=== PATIENT | male | born 1990 | race African-American/Black ===

== ENCOUNTER 2016-07-28 07:03 | Emergency (ER) | payer SELFPAY ==
[2016-07-28 08:23] LABS: ABSOLUTE LYMPHOCYTES (AUTO) 1.8 10^3/uL (0.5-4.7); ABSOLUTE MONOCYTES (AUTO) 0.4 10^3/uL (0.1-1.4); ABSOLUTE NEUT (AUTO) 1.5 10^3/uL (1.7-8.2); BASOPHILS % (AUTO) 0.7 % (0-2); EOSINOPHILS % (AUTO) 1.2 % (0-6); HEMATOCRIT 44.9 % (37.9-51.0); HEMOGLOBIN 15.2 g/dL (13.5-17.0); HGB HCT DIFFERENCE 0.7; LYMPHOCYTES % (AUTO) 48.1 % (13-45); MEAN CORPUSCULAR HEMOGLOBIN 32.3 pg (27.0-33.4); MEAN CORPUSCULAR HGB CONC 33.9 g/dL (32.0-36.0); MEAN CORPUSCULAR VOLUME 95 fl (80-97); MONOCYTES % (AUTO) 10.3 % (3-13); RED BLOOD COUNT 4.72 10^6/uL (4.35-5.55); RED CELL DISTRIBUTION WIDTH 12.8 % (11.5-14.0); SEGMENTED NEUTROPHILS % (AUTO) 39.7 % (42-78); WHITE BLOOD COUNT 3.8 10^3/uL (4.0-10.5)
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
[2016-07-28 08:46] LABS: ALANINE AMINOTRANSFERASE 15 U/L (21-72); ALBUMIN 4.5 g/dL (3.5-5.0); ALKALINE PHOSPHATASE 69 U/L (38-126); ANION GAP 11 (5-19); ASPARTATE AMINO TRANSFERASE 23 U/L (17-59); BILIRUBIN,DIRECT 0.2 mg/dL (0.0-0.4); BILIRUBIN,TOTAL 0.8 mg/dL (0.2-1.3); BLOOD UREA NITROGEN 17 mg/dL (7-20); CARBON DIOXIDE 30 mmol/L (22-30); CHLORIDE 101 mmol/L (98-107); CREATINE KINASE 224 U/L (55-170); CREATININE RESULT 1.13 mg/dL (0.52-1.25); GLUCOSE 96 mg/dL (75-110); POTASSIUM 4.3 mmol/L (3.6-5.0); SODIUM 141.5 mmol/L (137-145); TOTAL PROTEIN 7.4 g/dL (6.3-8.2)
[2016-07-28 09:37] LABS: URINE BARBITURATES SCREEN NEGATIVE; URINE METHADONE SCREEN NEGATIVE; URINE OPIATES LOW NEGATIVE; URINE PHENCYCLIDINE SCREEN NEGATIVE
[2016-07-28 10:57] VITALS: BP 119/66
--- NOTE | 2016-07-28 12:53 | EKG REPORT ---
SEVERITY:- NORMAL ECG - SINUS RHYTHM RSR' IN V1 : Confirmed by: Gayle Fitzgerald MD 28-Jul-2016 12:52:55
== END 2016-07-28 10:57 | disposition home or self-care (01) ==
LOC: ER 07:03
DX: R55 Syncope and collapse (principal); R07.9 Chest pain, unspecified; R11.2 Nausea with vomiting, unspecified; F17.200 Nicotine dependence, unspecified, uncomplicated; D72.819 Decreased white blood cell count, unspecified
CPT/HCPCS: 36415; 71020; 80053; 80307; 82550; 84484; 85025; 85379; 93005; 93010; 99284

== ENCOUNTER 2017-04-25 16:43 | Emergency (ER) | payer MEDICAID ==
[2017-04-25] MEDS ORDERED: FENTANYL CITRATE INJ/PF 100 MCG/2 ML AMPUL IV ONE (16:45)
[2017-04-25] MEDS ORDERED: NORMAL SALINE 1000 ML 1,000 ML IV ONE (16:47)
[2017-04-25] MEDS ORDERED: DIAZEPAM INJ 10 MG/2 ML DISP.SYRIN IV ONE (16:48)
[2017-04-25] MEDS ORDERED: DIPH/PERTUSS(ACELL)/TETANUS VAC/PF 0.5 ML SYR (>=10YO) IM ONE (16:48)
[2017-04-25] MEDS ORDERED: DIAZEPAM INJ 10 MG/2 ML DISP.SYRIN ONE (16:50)
[2017-04-25] MEDS ORDERED: CEFAZOLIN 1 GM/D5W RTU 1 GM/50 ML RTUPB IV ONE (16:55)
[2017-04-25] MEDS ORDERED: HYDROMORPHONE HCL INJ/PF 2 MG/ML AMPULE IV ONE ×2 (16:56→17:52)
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
[2017-04-25 17:02] LABS: ABSOLUTE LYMPHOCYTES (AUTO) 3.5 10^3/uL (0.5-4.7); ABSOLUTE MONOCYTES (AUTO) 0.7 10^3/uL (0.1-1.4); ABSOLUTE NEUT (AUTO) 5.2 10^3/uL (1.7-8.2); BASOPHILS % (AUTO) 0.4 % (0-2); EOSINOPHILS % (AUTO) 0.2 % (0-6); HEMATOCRIT 46.1 % (37.9-51.0); HEMOGLOBIN 15.6 g/dL (13.5-17.0); LYMPHOCYTES % (AUTO) 37.1 % (13-45); MEAN CORPUSCULAR HEMOGLOBIN 32.6 pg (27.0-33.4); MEAN CORPUSCULAR HGB CONC 33.8 g/dL (32.0-36.0); MEAN CORPUSCULAR VOLUME 96 fl (80-97); MONOCYTES % (AUTO) 7.6 % (3-13); PLATELET COUNT 182 10^3/uL (150-450); RED BLOOD COUNT 4.78 10^6/uL (4.35-5.55); RED CELL DISTRIBUTION WIDTH 12.7 % (11.5-14.0); SEGMENTED NEUTROPHILS % (AUTO) 54.7 % (42-78); TOTAL CELLS COUNTED % (AUTO) 100 %; WHITE BLOOD COUNT 9.6 10^3/uL (4.0-10.5)
[2017-04-25 17:09] LABS: INTERNATIONAL RATION (INR) 0.93; PROTHROMBIN TIME 13.2 SEC (11.4-15.4)
[2017-04-25 17:10] LABS: PARTIAL THROMBOPLASTIN TIME 24.8 SEC (23.5-35.8)
[2017-04-25 17:15] LABS: ALANINE AMINOTRANSFERASE 23 U/L (21-72); ALBUMIN 4.9 g/dL (3.5-5.0); ALKALINE PHOSPHATASE 69 U/L (38-126); ANION GAP 12 (5-19); ASPARTATE AMINO TRANSFERASE 27 U/L (17-59); BILIRUBIN,DIRECT 0.2 mg/dL (0.0-0.4); BILIRUBIN,TOTAL 0.5 mg/dL (0.2-1.3); BLOOD UREA NITROGEN 13 mg/dL (7-20); CALCIUM 10.3 mg/dL (8.4-10.2); CARBON DIOXIDE 32 mmol/L (22-30); CHLORIDE 101 mmol/L (98-107); GLUCOSE 112 mg/dL (75-110); POTASSIUM 3.7 mmol/L (3.6-5.0); SODIUM 144.5 mmol/L (137-145); TOTAL PROTEIN 8.1 g/dL (6.3-8.2)
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
[2017-04-25 18:40] VITALS: BP 130/81
[2017-04-25 19:26] LABS: APPEARANCE,URINE CLEAR; BILIRUBIN,URINE NEGATIVE (NEGATIVE); COLOR,URINE YELLOW; GLUCOSE, URINE NEGATIVE (NEGATIVE); KETONES,URINE NEGATIVE (NEGATIVE); LEUKOCYTE ESTERASE,URINE NEGATIVE (NEGATIVE); NITRITE,URINE NEGATIVE (NEGATIVE); PROTEIN,URINE 30 mg/dL (NEGATIVE); URINE SPECIFIC GRAVITY 1.021; UROBILINOGEN,URINE NEGATIVE mg/dL (<2.0)
[2017-04-25 19:38] LABS: URINE AMPHETAMINES SCREEN NEGATIVE; URINE BARBITURATES SCREEN NEGATIVE; URINE BENZODIAZEPINES SCREEN NEGATIVE; URINE COCAINE SCREEN NEGATIVE; URINE MARIJUANA (THC) SCREEN UNCONFIRMED POSITIVE; URINE METHADONE SCREEN NEGATIVE; URINE PHENCYCLIDINE SCREEN NEGATIVE
[2017-04-25] MEDS ORDERED: NITROGLYCERIN/D5W 50 MG/250 ML RTUINJ IV PRN (21:58)
== END 2017-04-25 18:28 | disposition short-term general hospital (02) ==
LOC: ER 16:43
DX: S62.325B Displaced fracture of shaft of fourth metacarpal bone, left hand, initial encounter for open fracture (principal); W34.00XA Accidental discharge from unspecified firearms or gun, initial encounter; Y93.89 Activity, other specified; Y92.009 Unspecified place in unspecified non-institutional (private) residence as the place of occurrence of the external cause; Z98.890 Other specified postprocedural states; Z23 Encounter for immunization
CPT/HCPCS: 96376; 99291; 90471; 96375; 96365; 36415; 85025; 85610; 85730; 80053; 81001; 80307; 73130; 90715; 29125; J0690; J3360; J3010; J1170; J7030

== ENCOUNTER 2018-11-14 14:11 | Emergency (ER) | payer SELFPAY ==
--- NOTE | 2018-11-14 15:01 | ER Document Report ---
ED Medical Screen (RME) - General Chief Complaint: Heat Exposure Stated Complaint: POSSIBLE SPIDER BITE Time Seen by Provider: 11/14/18 14:46 Notes: Generally healthy 28-year-old male presents to the emergency department with chief complaint of hematuria and also for concern for a spider bite on his left anterior lateral thigh. Patient states that he thought he was bit by a spider while he was sleeping and there were 2 small puncture wounds present yesterday. Patient states that the wound itched and he put some aloe vera on it. Patient has not been picking at it and when he woke up this morning there was some swelling around the area and some skin breakdown present. Also, patient has had hematuria 3 times over the past 2 months, yesterday after urinating there was a "a lot of blood" in the toilet which concerned him prompting him to seek care today. Patient complained of some mild flank pain, denies any urinary frequency/urgency/dysuria. Patient is in a monogamous relationship. No other complaints I have greeted and performed a rapid initial assessment of this patient. A comprehensive ED assessment and evaluation of the patient, analysis of test results and completion of medical decision making process will be conducted by an additional ED providers. TRAVEL OUTSIDE OF THE [place] IN LAST 30 DAYS: No - Related Data Allergies/Adverse Reactions: No Known Allergies Allergy (Verified 11/14/18 14:11) Past Medical History - Social History Chew tobacco use (# tins/day): No Frequency of alcohol use: None Drug Abuse: Marijuana Renal/ Medical History: Denies: Hx Peritoneal Dialysis Musculoskeltal Medical History: Reports Hx Musculoskeletal Deformity, Reports Hx Musculoskeletal Trauma Traumatic Medical History: Reports: Hx Fractures Past Surgical History: Reports: Hx Oral Surgery - wisdom tooth, Hx Orthopedic Surgery - hand and foot - Immunizations Immunizations up to date: No Hx Diphtheria, Pertussis, Tetanus Vaccination: No Physical Exam - Vital signs Vitals: Temp Pulse Resp BP Pulse Ox 98.6 F 80 16 121/63 96 11/14/18 14:15 11/14/18 14:15 11/14/18 14:15 11/14/18 14:15 11/14/18 14:15 - Notes Notes: PHYSICAL EXAMINATION: Reviewed vital signs and charting by RN GENERAL: Alert, interacts well. No acute distress. HEAD: Normocephalic, atraumatic. EYES: Pupils equal and round. Extraocular movements intact. ENT: Oral mucosa moist, tongue midline. NECK: Full range of motion. Trachea midline. LUNGS: Clear to auscultation bilaterally, no wheezes, rales, or rhonchi. No respiratory distress. HEART: Regular rate and rhythm. No murmur ABDOMEN: Deferred in triage. EXTREMITIES: Moves all 4 extremities spontaneously. No edema, No cyanosis. PSYCH: Normal affect, normal mood. SKIN: Warm, dry, normal turgor. No rashes or lesions noted. Course - Vital Signs Vital signs: Temp Pulse Resp BP Pulse Ox 98.6 F 80 16 121/63 96 11/14/18 14:15 11/14/18 14:15 11/14/18 14:15 11/14/18 14:15 11/14/18 14:15
[2018-11-14 15:27] LABS: ABSOLUTE LYMPHOCYTES (AUTO) 2.2 10^3/uL (0.5-4.7); ABSOLUTE MONOCYTES (AUTO) 0.5 10^3/uL (0.1-1.4); ABSOLUTE NEUT (AUTO) 3.1 10^3/uL (1.7-8.2); BASOPHILS % (AUTO) 0.7 % (0-2); EOSINOPHILS % (AUTO) 0.7 % (0-6); HEMATOCRIT 45.7 % (37.9-51.0); HEMOGLOBIN 15.4 g/dL (13.5-17.0); LYMPHOCYTES % (AUTO) 37.6 % (13-45); MEAN CORPUSCULAR HEMOGLOBIN 32.3 pg (27.0-33.4); MEAN CORPUSCULAR HGB CONC 33.7 g/dL (32.0-36.0); MEAN CORPUSCULAR VOLUME 96 fl (80-97); MONOCYTES % (AUTO) 8.8 % (3-13); PLATELET COUNT 178 10^3/uL (150-450); RED BLOOD COUNT 4.77 10^6/uL (4.35-5.55); RED CELL DISTRIBUTION WIDTH 13.3 % (11.5-14.0); SEGMENTED NEUTROPHILS % (AUTO) 52.2 % (42-78); TOTAL CELLS COUNTED % (AUTO) 100 %; WHITE BLOOD COUNT 5.9 10^3/uL (4.0-10.5)
[2018-11-14] MEDS ORDERED: NORMAL SALINE 1000 ML 1,000 ML IV ONE ×2 (15:34→16:59)
--- NOTE | 2018-11-14 15:40 | ER Document Report ---
ED General - General Chief Complaint: Heat Exposure Stated Complaint: POSSIBLE SPIDER BITE Time Seen by Provider: 11/14/18 14:46 Primary Care Provider: [facility] [Provider Group] - Follow up as needed [facility] [Provider Group] - Follow up as needed Notes: Patient is a 28-year-old male who presents to the emergency department with multiple complaints. Patient states this morning he woke up and noted drops of blood on the outside of his penis. Patient states that this has happened 2 oth er times over the past few months where he will wake up and noticed blood on his boxers. Patient states sometimes he does feel like he cannot empty his bladder but does not have any urinary symptoms. Patient states there is no penile pain or testicular pain or swelling. Patient states he is sexually active with his as they are in a monogamous relationship. Patient states they do not use p rotection. Patient states he has never seen a doctor for this. Patient denies fever. Patient states he has had chills. Patient denies joint pain. Patient also complains of possible dehydration. He states that the air conditioning in his house is broken and they have been outside all day. Patient states he has been hydrating appropriately but he feels like his urine is darker than normal and that he feels drained. Patient denies passing out or feeling of lightheadedness. Patient states he just feels like a heaviness throughout his whole body. Patient also complains of possible spider bite to the left anterior thigh. Patient states he noticed this 24 hours ago when he woke up and noticed to possible bite lawrence. Patient states that appeared to be 2 pimple-like areas that have now busted and turned into a dried wound. Patient denies pain to the site. TRAVEL OUTSIDE OF THE [place] IN LAST 30 DAYS: No - Related Data Allergies/Adverse Reactions: No Known Allergies Allergy (Verified 11/14/18 14:11) Past Medical History - General Information source: Patient - Social History Smoking Status: Current Every Day Smoker Cigarette use (# per day): Yes - 5-6 cigs per day Chew tobacco use (# tins/day): No Smoking Education Provided: Yes Frequency of alcohol use: None Drug Abuse: Marijuana Lives with: Family Family History: CAD, Hyperlipidemia, Hypertension Patient has suicidal ideation: No Patient has homicidal ideation: No - Past Medical History Cardiac Medical History: Reports: None Pulmonary Medical History: Reports: Hx Bronchitis EENT Medical History: Reports: None Neurological Medical History: Reports: None Endocrine Medical History: Reports: None Renal/ Medical History: Reports: None. Denies: Hx Peritoneal Dialysis Malignancy Medical History: Reports None GI Medical History: Reports: None Musculoskeletal Medical History: Reports Hx Musculoskeletal Deformity, Reports Hx Musculoskeletal Trauma Skin Medical History: Reports None Psychiatric Medical History: Reports: None Traumatic Medical History: Reports: Hx Fractures Infectious Medical History: Reports: None Past Surgical History: Reports: Hx Oral Surgery - wisdom tooth, Hx Orthopedic Surgery - hand and foot - Immunizations Immunizations up to date: No Hx Diphtheria, Pertussis, Tetanus Vaccination: No Review of Systems - Review of Systems Constitutional: See HPI EENT: No symptoms reported Cardiovascular: No symptoms reported Respiratory: No symptoms reported Gastrointestinal: No symptoms reported Genitourinary: See HPI Male Genitourinary: See HPI Musculoskeletal: Back pain Skin: See HPI Hematologic/Lymphatic: No symptoms reported Neurological/Psychological: No symptoms reported Physical Exam - Vital signs Vitals: Temp Pulse Resp BP Pulse Ox 98.6 F 80 16 121/63 96 11/14/18 14:15 11/14/18 14:15 11/14/18 14:15 11/14/18 14:15 11/14/18 14:15 Interpretation: Normal - Notes Notes: GENERAL: Well-appearing, well-nourished and in no acute distress. HEAD: Atraumatic, normocephalic. EYES: Pupils equal round and reactive to light, extraocular movements intact, sclera anicteric, conjunctiva are normal. ENT: Nares patent, oropharynx clear without exudates. Moist mucous membranes. NECK: Normal range of motion, supple without lymphadenopathy or JVD. LUNGS: Breath sounds clear to auscultation bilaterally and equal. No wheezes rales or rhonchi. HEART: Regular rate and rhythm without murmurs, rubs or gallops. ABDOMEN: Soft, nontender, normoactive bowel sounds. No guarding, no rebound. No masses appreciated. BACK: No cervical, thoracic, lumbar midline tenderness. No saddle anesthesia, normal distal neurovascular exam. GENITOURINARY: Deferred. EXTREMITIES: Normal range of motion, no pitting or edema. No clubbing or cyanosis. NEUROLOGICAL: Cranial nerves II through XII grossly intact. Normal speech, normal gait. PSYCH: Normal mood, normal affect. SKIN: Warm, Dry, normal turgor, 4ofh2up area of erythema to left anterior thigh, no drainage, area is slightly firm without fluctuance, there does not appear to be a surrounding cellulitis or an area of necrotic tissue at this time. Course - Re-evaluation Re-evalutation: 11/14/18 15:40 Upon initial assessment patient is resting comfortably on stretcher and is nontoxic-appearing. Patient's vital signs are stable. I will hydrate the patient appropriately and wait for basic labs and a urinalysis. 11/14/18 17:15 Patient reports feeling much better after receiving first liter of fluids. Due to the patient's elevated creatinine and elevated CK I will give another liter of IV fluids. I did speak with the patient and the significant other regarding close monitoring of the possible left insect bite to the leg. I did educate him to use warm compresses to the site and to seek medical treatment if the redness grows and extends up or down the leg, begins to drain, feels hot to touch or if he has any concerning signs or symptoms. 11/14/18 17:24 With Farheen VILLAVICENCIO at bedside I did performed a genitalia examination as the patient reported waking up with drops of blood coming out of the penis. No lesions noted on the outside or tip of the penis, no drainage or discharge, no tenderness to the epididymitis, no swelling or pain to the testicles. - Vital Signs Vital signs: Temp Pulse Resp BP Pulse Ox 98.6 F 80 16 121/63 96 11/14/18 14:15 11/14/18 14:15 11/14/18 14:15 11/14/18 14:15 11/14/18 14:15 - Laboratory Result Diagrams: 11/14/18 15:05 11/14/18 15:05 Laboratory results interpreted by me: 11/14/18 11/14/18 11/14/18 15:00 15:05 15:05 Creatinine 1.40 H Creatine Kinase 226 H Urine Ketones TRACE H Urine Urobilinogen 4.0 H Urine Ascorbic Acid 20 H Laboratory 11/14/18 11/14/18 11/14/18 15:00 15:05 15:05 WBC 5.9 RBC 4.77 Hgb 15.4 Hct 45.7 MCV 96 MCH 32.3 MCHC 33.7 RDW 13.3 Plt Count 178 Seg Neutrophils % 52.2 Lymphocytes % 37.6 Monocytes % 8.8 Eosinophils % 0.7 Basophils % 0.7 Absolute Neutrophils 3.1 Absolute Lymphocytes 2.2 Absolute Monocytes 0.5 Absolute Eosinophils 0.0 Absolute Basophils 0.0 Sodium 138.9 Potassium 4.3 Chloride 101 Carbon Dioxide 30 Anion Gap 8 BUN 14 Creatinine 1.40 H Est GFR ( Amer) > 60 Est GFR (Non-Af Amer) > 60 Glucose 81 Calcium 9.9 Creatine Kinase Urine Color YELLOW Urine Appearance CLEAR Urine pH 7.0 Ur Specific [place] 1.019 Urine Protein NEGATIVE Urine Glucose (UA) NEGATIVE Urine Ketones TRACE H Urine Blood NEGATIVE Urine Nitrite NEGATIVE Urine Bilirubin NEGATIVE Urine Urobilinogen 4.0 H Ur Leukocyte Esterase NEGATIVE Urine WBC (Auto) 1 Urine RBC (Auto) 2 Urine Mucus (Auto) RARE Urine Ascorbic Acid 20 H 11/14/18 15:05 WBC RBC Hgb Hct MCV MCH MCHC RDW Plt Count Seg Neutrophils % Lymphocytes % Monocytes % Eosinophils % Basophils % Absolute Neutrophils Absolute Lymphocytes Absolute Monocytes Absolute Eosinophils Absolute Basophils Sodium Potassium Chloride Carbon Dioxide Anion Gap BUN Creatinine Est GFR ( Amer) Est GFR (Non-Af Amer) Glucose Calcium Creatine Kinase 226 H Urine Color Urine Appearance Urine pH Ur Specific [place] Urine Protein Urine Glucose (UA) Urine Ketones Urine Blood Urine Nitrite Urine Bilirubin Urine Urobilinogen Ur Leukocyte Esterase Urine WBC (Auto) Urine RBC (Auto) Urine Mucus (Auto) Urine Ascorbic Acid Patient has an elevated creatinine at 1.4 and an elevated CK at 226. Patient did have trace ketones in the urine without hematuria. Discharge - Discharge Clinical Impression: Elevated creatine kinase, Elevated serum creatinine Leg wound, left Qualifiers: Encounter type: initial encounter Qualified Code(s): S81.802A - Unspecified open wound, left lower leg, initial encounter Condition: Stable Disposition: HOME, SELF-CARE Additional Instructions: Today you were seen in the emergency department with a chief complaint of a possible insect bite to the left upper leg and possible dehydration. At this time I do not believe that the possible bite requires antibiotics but it does require close monitoring. Please continue to monitor for fever, chills, red streaking up or down the leg, swollen glands around the area ending to include the groin as this could be signs and symptoms of a possible infection developing. Use warm compresses to the site and take Tylenol as needed for pain. Your blood work and urine sample did show mild dehydration. We have adequately hydrated you with IV fluids. Please continue to push oral fluids especially while being outside in this extreme heat. Please return the emergency department if you become progressively weak, vomit repeatedly or have any new symptoms. I am not sure the cause of the blood that you have stated was on the outside of the penis. There was no blood in the urine and no obvious signs of a urinary tract infection. We have sent off cultures for gonorrhea and chlamydia. Please seek medical attention if symptoms return, you have testicular swelling or pain, inability to urinate, penile swelling or pain or any other concerning signs or symptoms. I have referred you to the [facility] as well as [facility]. These medical facilities help people who do not have insurance. If you continue to have issues with the blood coming out of the penis please follow-up with them for further management and evaluation as you may need additional testing. Dehydration Dehydration can result from vomiting or diarrhea, fever, or decreased inta ke of fluids. If severe, hospitalization and intravenous fluids may be required. Most cases are treated at home with fluids by mouth. For the next 24 hours, drink lots of clear fluids. In mild cases, this can be soda pop or sports drinks. For more severe dehydration, the doctor may recommend special fluids such as Pedialyte or Lytren. Try to get three liters (3 quarts) of fluid per day. If vomiting occurs, continue to drink the fluids frequently (every 15 to 20 minutes), but in small amounts (one or two ounces). Depending on the type of dehydration, the doctor may prescribe antinausea medicine or potassium replacements. Call the doctor or return for re-examination if you become progressively weak, vomit repeatedly, or have other new symptoms. Insect Bites You have been bitten by an insect. These bites can cause two types of swelling: an initial swelling due to insect saliva or injected poison, and a late reaction due to your body's allergic reaction. This initial local reaction may be uncomfortable but is not dangerous. O ften there's an itchy "hive" at the bite location. This is treated with antihistamines, cold compresses, and resting the affected body part. The later reaction often develops about the second day. The entire area becomes very swollen, red, itchy, and tender. This is an allergic reaction. Yo ur body is attacking the leftover insect saliva or venom. This type of allergy is unpleasant, but not dangerous. We treat this swelling with cortisone-type medicine. Sometimes we use antibiotics if we're worried about infection. Antihistamines help with the itch. If you develop a fever, chills, a red streak, or swollen glands in the area of the bite, infection may be starting. Return at once. Forms: Smoking Cessation Education Referrals: [facility] [Provider Group] - Follow up as needed [facility] [Provider Group] - Follow up as needed
[2018-11-14 15:45] LABS: ANION GAP 8 (5-19); BLOOD UREA NITROGEN 14 mg/dL (7-20); CALCIUM 9.9 mg/dL (8.4-10.2); CARBON DIOXIDE 30 mmol/L (22-30); CHLORIDE 101 mmol/L (98-107); GLUCOSE 81 mg/dL (75-110); POTASSIUM 4.3 mmol/L (3.6-5.0); SODIUM 138.9 mmol/L (137-145)
[2018-11-14 15:47] LABS: APPEARANCE,URINE CLEAR; BILIRUBIN,URINE NEGATIVE (NEGATIVE); COLOR,URINE YELLOW; GLUCOSE, URINE NEGATIVE (NEGATIVE); KETONES,URINE TRACE mg/dL (NEGATIVE); LEUKOCYTE ESTERASE,URINE NEGATIVE (NEGATIVE); NITRITE,URINE NEGATIVE (NEGATIVE); PROTEIN,URINE NEGATIVE (NEGATIVE); URINE SPECIFIC GRAVITY 1.019
[2018-11-14 17:41] VITALS: BP 117/86
[2018-11-14 18:56] LABS: CHLAM PCR NOT DETECTED (NOT DETECT)
== END 2018-11-14 17:54 | disposition home or self-care (01) ==
LOC: ER 14:11
DX: S81.802A Unspecified open wound, left lower leg, initial encounter (principal); T63.301A Toxic effect of unspecified spider venom, accidental (unintentional), initial encounter; R74.8 Abnormal levels of other serum enzymes; X58.XXXA Exposure to other specified factors, initial encounter; F17.210 Nicotine dependence, cigarettes, uncomplicated
CPT/HCPCS: 99283; 96360; 96361; 36415; 82550; 85025; 80048; 81001; 87491; 87591; J7030